=== PATIENT | female | born 1970 | race Caucasian/White ===

== ENCOUNTER → 2017-01-24 | Outpatient (CLI) | payer MEDICAID ==
[~2017-01-24] MED LIST: AMARYL2 MG PO; AMLO5TAB PO; AMOXICILLIN 50500 MG PO; ASPIRIN 325MG325 MG PO; ASPIRIN 81MG TA81 MG PO; ASPIRIN EC325 M1 PO; ASPIRIN EC325 MG PO; ASPIRIN325 M1 PO; ASPRIN OR; CARVEDILOL 1212.5 MG PO; CARVEDILOL 25MG25 MG PO; CHANTIX1 M1 PO; CIPRO 500MG TA500 MG PO; CLOPIDOGREL75 MG PO; COREG 6.25MG6.25 MG PO; CRESTOR20 MG PO; DIOVAN320 MG PO; DIOVAN80 MG OR; ESCITALOPRAM 2020 MG PO; FENOFIBRATE160 MG PO; FISH OIL1000 MG PO; FLAGYL 500MG.500 MG PO; FLEXERIL10 MG PO; GABAPENTIN 600600 MG PO; GABAPENTIN300 MG PO; GEMFIBROZIL600 MG PO; GLIMEPIRIDE 2MG2 MG PO; GLIPIZIDE5 MG PO; GLYBURIDE 5MG TA5 MG PO; GLYBURIDE5 MG PO; HABITROL21 MG/24 H TD; HUMALOG100 U/ML SC; HYDROCODONE 7.51 TAB PO; HYDROCODONE BI473 ML PO; IMDUR 60MG. TAB60 MG PO; INSULIN GL100 UNITS/ SC; INSULIN GL100 UNITS1 SC; K-DUR 20MEQ TA20 MEQ PO; KEFLEX 500MG.500 MG PO; LANTUS100 U/ML SC; LASIX 40MG. TAB40 MG PO; LINZESS145 MCG PO; LIPITOR80 MG PO; LISINOPRIL 20MG20 MG PO; LORATADINE 10MG10 M1 PO; LORTAB 500 MG-71 TAB PO; LOSARTAN POTAS100 MG PO; MAXZIDE 25 MG-31 TAB PO; METFORMIN 500M500 M1 PO; METFORMIN 500M500 MG PO; METFORMIN HCL1000 MG PO; METFORMIN500 MG PO; METOCLOPRAMIDE10 M2 PO; METOLAZONE 2.52.5 MG PO; METOPROLOL100 MG PO; METOPROLOL50 MG PO; NICODERM C21 MG/24 H TD; NICOTINE PATCH;21 MG TD; NITROGLYCERIN0.4 MG SL; PANTOPRAZOLE SO40 M1 PO; PERCOCET 5/3251 EACH PO; PHENERGAN25 M3 PO; POTASSIUM CHLO10 ME3 PO; PRAVACHOL10 MG PO; SIMVASTATIN40 MG PO; TERBINAFINE250 MG PO; TESSALON PERLE100 MG PO; TRICOR145 MG PO; VICODIN 5/500 T1 TAB PO; VOLTAREN75 MG PO; Zofran4 MG PO
[2017-01-24 12:37] LABS: LYMPH # 2.8 K/mm3 (0.7-4.5)
[2017-01-24 12:38] LABS: HEMOGLOBIN 12.7 g/dL (12.2-16.2)
[2017-01-24 15:05] LABS: BUN 57 mg/dL (7-18)
[2017-01-24 15:07] LABS: GFR (ESTIMATED) 20 ML/MIN (59-)
--- NOTE | 2017-01-25 13:18 | RADIOLOGY REPORT PS360 ---
CERVICAL SPINE 4 OR 5 VIEWS HISTORY: Fall. Neck injury. HTN,TYPE II DM W/VASCULAR DISEASE,HYPERLIPIDEMIA Patient Age: 46 years: Female Ordering Physician: Jabari Anderson MD TECHNIQUE: Five-view cervical spine series. COMPARISON : FINDINGS Cervical vertebral bodies are intact and disc spaces are well-maintained. Nonspecific straightening of cervical spine likely positional but cannot exclude muscle spasm related to recent injury resulting in size. There is some very minor uncovertebral joint hypertrophy and spurring to the right which yields mild right foraminal encroachment seen to the right at C5-C6 . Less so at C4/5. Facets appear intact. Small rudimentary cervical ribs C7 measuring up to 2.5 seem in length bilateral. Small but conceivably could contribute to thoracic inlet symptoms been present Previous sternotomy noted. Prevertebral soft tissues appear normal. C1-C2 relationships appear normal. IMPRESSION IMPRESSION: 1. No acute fracture nor subluxation 2. Nonspecific straightening cervical spine most likely positional but can be reflection of muscle spasm. 3. . Only Scant degenerative changes. Trace spurring yields minor foraminal encroachment to right at C5-C6. 4.Small bilateral rudimentary cervical ribs.
== END ==
LOC: LAB 12:03 → RAD 12:03
PROVIDERS: Internal Medicine
DX: I10 Essential (primary) hypertension (principal); E78.5 Hyperlipidemia, unspecified; N18.3 Chronic kidney disease, stage 3 (moderate); M54.2 Cervicalgia; R10.13 Epigastric pain

== ENCOUNTER 2017-01-25 04:45 | Emergency (ER) | payer MEDICAID ==
[~2017-01-25] VITALS: Ht 167.6 cm; Wt 83.9 kg
[~2017-01-25 04:45] MED LIST changes: -ASPIRIN 325MG325 MG PO; -CRESTOR20 MG PO; -ESCITALOPRAM 2020 MG PO; -GLIMEPIRIDE 2MG2 MG PO; -LINZESS145 MCG PO; -Zofran4 MG PO
--- NOTE | 2017-01-25 05:04 | Emergency Room Report ---
History of Present Illness Time Seen by [id number] Presenting Problem in Triage Pt arrived:Walked Presenting Problem:HAS A "DOUBLE HERNIA" AND "CAN'T STAND IT ANY LONGER"; HAS SEEN DR. VALLE FOR PROBLEM X2 MONTHS; 20 POUNDS WT LOSS Onset of symptoms date/time:11/22/16 or onset unknown for: Treatment Prior to Arrival: [employer] Provided by: Sepsis Risk Assessment: Temp: 97.8 B/P: 186/89 MAP: 121 Pulse: 72 Resp: 20 Recent fever? N Clinical Suspician of Infection? N Mental Status: 1 - Regular (Normal Baseline) Sepsis Risk:Low Sepsis Risk Have you (or family members/close friends) recently traveled outside the [place]? N If Yes, where/when: Have you had exposure to infectious disease within the past month? N TB? Other? Specify: Source patient, RN notes reviewed, family, old records Exam Limitations no limitations Comment upper abd pain with hx of hernia with no fever or rash and no vomiting Cardiac Chest Pain Chest pain indicative of cardiac No Timing/Duration this evening Severity moderate ALLERGIES Coded Allergies: ciprofloxacin (From CIPRO) (Intermediate, I-RASH 03/13/15) lisinopril (Intermediate, I-ITCHING 03/13/15) morphine (Intermediate, I-ITCHING 03/13/15) Home Medications Active Scripts Carvedilol (Carvedilol 25MG) 25 MG PO BID #60 Ref 5 Prov: 06/23/12 Pantoprazole Sodium 40 MG PO QHS #30 TAB Ref 5 Prov: 03/19/14 Insulin Lispro, Recombinant (Humalog 100 UNITS/ML 10ML) 0 UNITS SC W/MEALS& HS #1 VIAL Prov: 03/14/15 Reported Medications CLOPIDOGREL BISULFATE (Clopidogrel 75MG) 75 MG PO DAILY HYDROCODONE/ACETAMINOPHEN (Hydrocodon-Acetamin 7.5-325/15) 1 TAB PO BIDP PRN PAIN Amlodipine Besylate (Amlodipine) 5 MG PO DAILY #30 ASPIRIN (Aspirin 325MG) 325 MG PO DAILY Escitalopram Oxalate (Escitalopram 20MG) 5 MG PO DAILY Linaclotide (Linzess 145MCG) 145 MCG PO DAILY Rosuvastatin Calcium (Crestor) 20 MG PO QHS Glimepiride (Glimepiride 2MG Tablet) 4 MG PO DAILY Gabapentin (Gabapentin 300MG) 300 MG PO QHS Losartan Potassium (Losartan 100MG) 100 MG PO DAILY Ondansetron (Zofran Odt) 4 MG PO Q6HP PRN NAUSEA Gabapentin (Gabapentin 600MG) 600 MG PO TID METFORMIN HCL (Metformin 500MG) 500 MG PO BID Metolazone (Metolazone 2.5MG) 10 MG PO DAILY Fenofibrate (Fenofibrate 160MG (GEQ: Lofibra)) 160 MG PO DAILY POTASSIUM CHL (Potassium Chloride) 10 MEQ PO DAILY ISOSORBIDE MONONITRATE (Isosorbide Mononitrate ER) 60 MG PO DAILY Loratadine (Loratadine 10MG Tablet) 10 MG PO DAILY Furosemide (Lasix 40MG) 40 MG PO DAILY PRN FLUID RETENTION History Medical History General CAD? Yes Angina: Yes MD: Yes Hypertension? Yes Hyperlipidemia? Yes CHF? No DVT? No PE? No COPD? No Asthma? No Anemia? No GERD? No Gastric ulcers? No GI Bleed? No Hernia? No Thyroid Problems? No Hypothyroidism? No CVA? Yes Seizures? No Diabetes? Yes Insulin Dependent: Yes Insulin Pump: No Home FSBS? Yes Renal Insuffiency? No End Stage Renal Disease? No UTI? No Stones? Yes GB Disease: Yes Nephritic Syndrome? No Asplenia? No Hepatitis? No Sickle Cell Disease? No Arthritis? No Cataracts? No Glaucoma? No MRSA? No HIV? No TB? No Anxiety? No Depression? No Cancer? No More? 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 Respiratory denies cough, denies shortness of breath, denies wheezing Cardiovascular denies chest pain, denies palpitations, denies syncope Gastrointestinal see HPI, abdominal pain, nausea, denies vomiting Genitourinary denies: dysuria, frequency, hesitancy, hematuria. Musculoskeletal denies back pain, denies joint pain, denies joint swelling, denies neck pain Skin denies rash Psychiatric/Neurological denies anxiety, denies headache Physical Exam Vital Signs Vital Signs Date Time Temp Pulse Resp B/P Pulse O2 O2 Flow FiO2 Ox Delivery Rate 01/25 0605 97.9 71 20 190/87 97 01/25 0452 97.8 72 20 186/89 98 - WBC >12,000 or <4,000 or 10% bands? 2 or more SIRS Criteria Met? B/P:190/87 MAP:121 Creatinine >2.0? UA output<0.5ml/kg/hr for 2 hrs? Platelet count >100,000? Lactate >2.0mmol/1? INR >1.2 or PTT > than 60 sec? Evidence of Organ Dysfunction? Provider documented clinical suspician of infection? N Sepsis Criteria Count: 1 Sepsis Risk: Low Sepsis Risk General Appearance no apparent distress Eye Exam - bilateral eye PERRL, bilateral eye EOMI Ear, Nose, Throat normal ENT inspection Neck supple Respiratory Status No: respiratory distress. Cardiovascular regular rate/rhythm Peripheral Pulses Pulses normal Yes Gastrointestinal soft, no organomegaly, no pulsatile mass, no guarding, no rebound, tenderness, ventral hernia noted Extremities normal inspection Strength 4 Upper Ext (L), 4 Upper Ext (R), 4 Lower Ext (L), 4 Lower Ext (R) Neurologic alert, preliminary school psychologist II-XII nml as tested, no motor/sensory deficits Reflexes Reflexes normal No Mental status normal mood/affect Skin intact Medical Decision Making LABS/Meds/Orders Pt receiving controlled substance in ED? No Results/Orders Laboratory Tests 01/25/17 0510: Lactic Acid 0.6 01/25/17 0510: Sodium 132 L, Potassium 5.4 H, Chloride 103, Carbon Dioxide 17 L, BUN 67 H, Creatinine 3.1 H, Estimated Creat Clear 29 L, Estimated GFR (MDRD) 16 *L, Glucose 262 H, Calcium 9.0, Total Bilirubin 0.1 L, AST 17, ALT 18, Alkaline Phosphatase 65, Troponin I < 0.02, Total Protein 7.7, Albumin 3.6, Globulin 4.1 H, Albumin/Globulin Ratio 0.9 L, Amylase 58, Lipase 342, WBC 6.1, RBC 4.19 L, Hgb 11.9 L, Hct 36.3 L, MCV 86.6, RDW 12.9, Plt Count 187, MPV 8.1, Gran % 47.7, Gran # 2.9, Lymphocytes % 42.7, Monocytes % 5.7, Eosinophils % 3.0, Basophils % 0.8, Lymphocytes # 2.6, Monocytes # 0.3, Eosinophils # 0.2, Basophils # 0.1, PUBS MCHC 32.8, MCH 28.4 Current Medication Orders Sig/Sarika Start time Last Medication Dose Route Stop Time Status Admin Famotidine 0 .STK-MED ONE 01/25 621 DC IV Metoclopramide HCl 0 .STK-MED ONE 01/25 621 DC .ROUTE Famotidine 20 MG ONCE ONE 01/25 615 DC 01/25 IV 01/26 616 0622 Metoclopramide HCl 10 MG ONCE ONE 01/25 615 DC 01/25 IVP 01/26 616 0622 Sodium Chloride 8 ML ONCE ONE 01/25 615 DC IV 01/25 0616 Sodium Chloride 1,000 ML .STK-MED ONE 01/25 0504 DC IV Sodium Chloride 10 ML PRN PRN 01/25 0500 AC IV 01/26 0458 Sodium Chloride 1,000 ML .Q4H 01/25 0500 AC 01/25 IV 01/25 0859 0536 Sodium Chloride 10 ML PRN PRN 01/25 0500 AC IV 01/26 0459 Orders Procedure Date/time Status DIET-NOTHING BY MOUTH 01/[address] ABD & PELVIS W/O CONTRAST 01/[address] SCAN REQ 01/25 459 Active IV SALINE LOCK 01/25 459 Active TROPONIN I 01/25 459 Complete LIPASE 01/25 459 Complete LACTIC ACID 01/25 459 Complete COMPLETE METABOLIC PANEL 01/25 459 Complete CBC WITH AUTO DIFF 01/25 459 Complete AMYLASE 01/25 459 Complete XRAY/CT/US XRAY/CT/US CT abdomen, pelvis CT interpretation by discussed w/radiologist Time results known: 610 CT Results abnormal (see report) Departure Departure Time of Disposition 0644 Disposition DC Home or Self Care(routine) Clinical Impression Primary Impression: Gastritis Qualifiers: Gastritis type: unspecified gastritis Chronicity: acute Gastritis bleeding: without bleeding Qualified Code: K29.00 - Acute gastritis without bleeding Secondary Impressions: Renal insufficiency Condition STABLE Referrals Justin BAILEY,Jabari Rdz (Family) Patient Instructions DI for Vomiting -- Adult Additional Instructions fluids and call pcp to follow up Discharge Counseling Counseled pt/family regarding diagnosis, test results, follow up needs ED Critical Care Critical Care No at [id number]
--- OUTSIDE RECORDS SUMMARY | 2017-01-25 05:09 | External Medical Summary Rpt | CCD ---
Demographics Preferred Language Estonian Marital Status Unknown Voodoo Affiliation Unknown Race Unknown Ethnic Group Unknown Author Author , HAI VALLES Address Unknown Phone [email or web address] Immunization Name Date Rout CVX Reac Dose Comm Prov Is Faci e tion ent ider Refu lity Give sed n Hep 08-1 43 999 Hist H109 No H109 B, 6-20 oric adul 07 al t Info rmat ion - Sour ce Unsp ecif ied
--- OUTSIDE RECORDS SUMMARY | 2017-01-25 05:09 | External Medical Summary Rpt | CCD ---
Author Author , HAI VALLES Address Unknown Phone [email or web address] Care Team Providers Care Dag Sprayer Name Role Phone Jabari Anderson MD, Unavailable Unavailable Jabari FERGUSON MD, Unavailable Unavailable ADOLFO FERGUSON MD Purpose Continuity of Care Document - 06-20-2012 through 2016 Problems Code Diagnosis DOS Provider Status 411.1 411.1 06-26-2012 [place] INTERMED [facility] CORONARY [facility] SYND 786.50 786.50 06-26-2012 [place] CHEST PAIN [facility] 041.49 041.49 06-23-2012 [place] OTHER AND [facility] UNSPECIFIED Hospital ESCHERICHIA COLI [E. COLI] 250.40 250.40 DIAB 06-23-2012 [place] RENAL [facility] MANIFEST, Hospital TYPE II OR UNSPEC TYPE, NOT UNCNTRLD 250.70 250.70 DIAB 06-23-2012 [place] PERIPH [facility] CIRC DIS, Hospital TYPE II OR UNSPEC TYPE, NOT UNCNTRLD 305.1 305.1 06-23-2012 [place] TOBACCO USE [facility] DISORDER Hospital 403.90 403.90 06-23-2012 [place] [facility], Hospital UNSPEC, W CHR KD STAGE I-IV OR UNSP 412 412 OLD 06-23-2012 [place] MYOCARDIAL [facility] INFARCT Hospital 414.01 414.01 06-23-2012 [place] CORONARY [facility] A[facility]OSCLER Hospital [place] CORONARY VESSEL 414.2 414.2 06-23-2012 [place] CHRONIC [facility] TOTAL Hospital OCCLUSION OF CORONARY ARTERY 443.81 443.81 06-23-2012 [place] ANGIOPATHY [facility] IN OTHER Hospital DIS 465.9 465.9 ACUTE 06-23-2012 [place] URI NOS [facility] 490 490 06-23-2012 [place] BRONCHITIS [facility] NOS Hospital 581.81 581.81 06-23-2012 [place] NEPHROTIC [facility] SYN IN OTH Hospital DIS 585.3 585.3 06-23-2012 [place] CHRONIC [facility] KIDNEY Hospital DISEASE, STAGE III (MODERATE) 599.0 599.0 URIN 06-23-2012 [place] TRACT [facility] INFECTION Hospital NOS V45.09 V45.09 06-23-2012 [place] OTHER [facility] SPECIFIED Hospital CARDIAC DEVICE IN SITU V45.82 V45.82 06-23-2012 [facility] CORON ANGIOPLASTY STATUS V58.67 V58.67 06-23-2012 [facility] (CURRENT) [facility] USE OF INSULIN E11.9 TYPE 2 DIABETES MELLITUS WITHOUT COMPLICATIO NS N28.9 DISORDER OF KIDNEY AND URETER, UNSPECIFIED R07.9 CHEST PAIN, UNSPECIFIED R10.9 UNSPECIFIED ABDOMINAL PAIN Allergies, Adverse Reactions, Alerts Type Drug Allergy Adverse Reaction to Substance Substance Reaction Severity Morphine I-ITCHING Intermediate Ciprofloxacin I-RASH Intermediate Lisinopril COUGH Intermediate Medications Na ND Rx Da Fi Fi Am Da Di Ph RX Ph St me C No te ll ll ou ys ag ar # ys at rm s nt no ma ic us Or Da si cy ia de te s n re d Sa 63 04 0 No li 80 -1 ne 70 9- Lo 10 20 ng Fl 07 13 er us 5 h Ac 10 ti ML ve Sy ri ng e NI 59 04 0 No TR 63 -1 OG 00 9- Lo LY 30 20 ng CE 06 13 er RI 5 N Ac 0. ti 4M ve G/ DO SE SP RA Y HY [address] 40 -1 OM 91 9- Lo OR 31 20 ng PH 23 13 er ON 0 E Ac 2 ti MG ve /M L CA RP UJ CT Sa 63 04 0 No li 80 -1 ne 70 9- Lo 10 20 ng Fl 07 13 er us 5 h Ac 10 ti ML ve Sy ri ng e NI 59 04 0 No TR 63 -1 OG 00 9- Lo LY 30 20 ng CE 06 13 er RI 5 N Ac 0. ti 4M ve G/ DO SE SP RA Y KE 00 04 0 No TO 40 -1 RO 93 6- Lo LA 79 20 ng C 50 13 er 30 1 Ac MG ti /M ve L AL Ni 00 04 0 No tr 08 -1 og 81 6- Lo ly 55 20 ng ce 24 13 er ri 9 n Ac 1 ti In ve ch Oi nt Ud p AM 67 04 0 No OX 25 -1 IC 30 6- Lo IL 14 20 ng LI 11 13 er N 0 50 Ac 0 ti MG ve CA PS UL E LE 00 04 0 No XI 46 -1 SC 96 6- Lo AN 50 20 ng 18 13 er IN [address] ti IO ve N NU 77 04 0 No C- 77 -1 IS 77 6- Lo OT 77 20 ng OP 79 13 er E [address] ti IO ve LY TE ;1 DO SE NU 77 04 0 No C- 77 -1 IS 77 6- Lo OT 77 20 ng OP 79 13 er E [address] ti IO ve LY TE ;1 DO SE RA 63 04 0 No D- 80 -1 SA 70 6- Lo LI 10 20 ng NE 07 13 er 5A FL Ac US ti H ve 10 ML SY RI NG E RA 63 04 0 No D- 80 -1 SA 70 6- Lo LI 10 20 ng NE 07 13 er 5A FL Ac US ti H ve 10 ML SY RI NG E Ni 00 04 0 No tr 08 -1 og 81 5- Lo ly 55 20 ng ce 24 13 er ri 9 n Ac 1 ti In ve ch Oi nt Ud p GI 12 04 0 No 32 -1 CO 22 5- Lo CK 22 20 ng TA 22 13 er IL 2 Ac 60 ti ML ve UD C Ph 00 04 1 No en 60 -1 az 35 5- Lo op 14 20 ng yr 22 13 er id 1 in Ac e ti 20 ve 0M G Ta bl et ME 51 04 0 No TF 07 -1 OR 90 4- Lo AR 17 20 ng N 22 13 er HC 0 L Ac 50 ti 0 ve MG TA BL ET CA 51 04 0 No RV 07 -1 ED 90 4- Lo IL 93 20 ng OL 12 13 er 0 12 Ac .5 ti ve MG TA BL ET PL 63 04 2 No AV 65 -1 IX 31 4- Lo 17 20 ng 75 10 13 er 3 MG Ac ti TA ve BL ET Ge 00 04 2 No mf 90 -1 ib 45 4- Lo ro 37 20 ng zi 96 13 er l 1 60 Ac 0M ti G ve Ta bl et As 51 04 2 No pi 07 -1 ri 90 4- Lo n 00 20 ng 32 52 13 er 5M 0 G Ac Ta ti bl ve et GL 51 04 0 No YB 07 -1 UR 90 4- Lo ID 87 20 ng E 32 13 er 5 0 MG Ac ti TA ve BL ET AP 00 04 2 No AP 40 -1 -H 60 4- Lo YD 36 20 ng RO 66 13 er CO 2 DO Ac NE ti ve 32 5M G- 7. 5M G Hy [address] 07 -1 oc 90 4- Lo hl 04 20 ng or 92 13 er ot 0 hi Ac az ti id ve e 25 MG Ta bl e Is 58 04 2 No os 17 -1 or 70 4- Lo bi 23 20 ng de 81 13 er 1 Mo Ac no ti ni ve tr at e 60 MG Ta AV 00 04 2 No AP 08 -1 RO 72 4- Lo 77 20 ng 15 23 13 er 0 1 MG Ac ti TA ve BL ET Ni 00 04 2 No co 06 -1 ti 70 4- Lo ne 81 20 ng 02 13 er 21 1 MG Ac /2 ti 4H ve R Pa tc h Ni 68 04 2 No tr 46 -1 og 20 4- Lo ly 14 20 ng ce 64 13 er ri 5 n Ac 0. ti 4M ve G (1 / 50 Gr ) FS 04 2 No -1 BL 4- Lo OO 20 ng D 13 er [place] GA Ac R ti ve GL 51 04 2 No IM 07 -1 EP 90 4- Lo IR 42 20 ng ID 52 13 er E 0 2 Ac MG ti ve TA BL ET HU 00 04 2 No MA 00 -1 LO 27 4- Lo G 51 20 ng 10 01 13 er 0 7 UN Ac IT ti S/ ve ML AL Pr 00 04 2 No av 59 -1 as 10 4- Lo ta 01 20 ng ti 61 13 er n 9 40 Ac MG ti ve Ta bl et Ga 68 04 2 No ba 08 -1 pe 40 4- Lo nt 08 20 ng in 00 13 er 1 30 Ac 0M ti G ve Ca ps ul e In 00 04 2 No brennan 08 -1 li 82 4- Lo n 22 20 ng Gl 06 13 er ar 0 gi Ac ne ti ve 10 0 Un it s/ Ml SO 00 04 3 No DI 40 -1 UM 97 3- Lo 98 20 ng CH 30 13 er LO 9 RI Ac DE ti ve 0. 9% SO NITESH TI ON Sa 63 04 1 No li 80 -1 ne 70 3- Lo 10 20 ng Fl 07 13 er us 5 h Ac 10 ti ML ve Sy ri ng e Ni 00 04 0 No tr 08 -1 og 81 3- Lo ly 55 20 ng ce 24 13 er ri 9 n Ac 1 ti In ve ch Oi nt Ud p MA 00 04 3 No PA 90 -1 P 41 3- Lo 32 98 20 ng 5 26 13 er MG 1 Ac TA ti BL ve ET Vital Signs 06-26-2012 16:28 Name Value Interpretat Reference Comment ion Range BP 86 mm[Hg] Diastolic BP Systolic 142 mm[Hg] Heart 92 /min Rate/Pulse O2% 94 % Respiratory 18 /min Rate 06-26-2012 14:48 Name Value Interpretat Reference Comment ion Range BP 64 mm[Hg] Diastolic BP Systolic 148 mm[Hg] Heart 72 /min Rate/Pulse Respiratory 18 /min Rate 06-26-2012 14:00 Name Value Interpretat Reference Comment ion Range O2% 96 % 06-23-2012 18:27 Name Value Interpretat Reference Comment ion Range Body 97.7 [degF] Temperature BP 78 mm[Hg] Diastolic BP Systolic 154 mm[Hg] Heart 66 /min Rate/Pulse Respiratory 18 /min Rate 06-23-2012 11:30 Name Value Interpretat Reference Comment ion Range O2% 97 % 06-20-2012 23:06 Name Value Interpretat Reference Comment ion Range Height 170.18 cm Weight 83.462 kg Measured 06-20-2012 19:33 Name Value Interpretat Reference Comment ion Range Body 98 [degF] Temperature BP 75 mm[Hg] Diastolic BP Systolic 144 mm[Hg] Heart 71 /min Rate/Pulse O2% 97 % Respiratory 18 /min Rate Weight 0 [oz_av] Measured Results Labs Lab Lab Date Result Refere Interp Status Commen Order Detail nces retati t Range on Hemoglobin A1c measurement (01-24-2017 12:06) Comment: DEW...[place] IN THE A.M. AND DOES NOT WANT TO Comment: COME BACK. Hemoglo 9.7 % 0.0-7.0 complet bin A1c 017 ed 12:06 Comment: < 6% NON-DIABETIC LEVEL Comment: < 7% CONTROLLED DIABETIC LEVEL Comment: > 8% POORLY CONTROLLED DIABETIC LEVEL Lipid profile (01-24-2017 12:06) Comment: DEW...PT [place] IN THE A.M. AND DOES NOT WANT TO Comment: COME BACK. Serum TNP TNP 0-40 complet or 017 L TNP ed plasma 12:06 TNP L cholest ezequiel in VLDL garett Serum = 673 30-200 complet or 017 mg/dL ed plasma 12:06 triglyc eride measure ment Comment: IF TRIGLYCERIDE VALUE EXCEEDS 400 MG/DL, Comment: THE VLDL/LDL VALUES HAVE NO CLINICAL SIGNIFICANCE. Comment: THE CALCULATIONS ARE ACCURATE FOR SPECIMENS IN Comment: WHICH THE TRIGLYCERIDE CONCENTRATION IS NO MORE Comment: THAN 400 MG/DL AND WHICH ARE NOT FROM PERSONS WHO Comment: HAVE TYPE III HYPERLIPOPROTEINEMIA. Serum TNP TNP 0-130 complet or 017 L TNP ed plasma 12:06 TNP L cholest mg/dL ezequiel in LDL measu Serum = 33.0 40-60 complet or 017 MG/DL ed plasma 12:06 cholest ezequiel in HDL measu Total = 212 < 200 complet cholest 017 mg/dL ed ezequile 12:06 measure ment Comprehensive metabolic panel (01-24-2017 12:06) Comment: DEW...PT IS LEAVING FOR [place] IN THE A.M. AND DOES NOT WANT TO Comment: COME BACK. Protein = 7.6 6.4-8.2 complet total 017 gm/dL ed ser/pietro 12:06 s ALT = 18 12-78 complet (SGPT) 017 U/L ed ser/pietro 12:06 s Serum = 14 15-37 complet or 017 U/L ed plasma 12:06 asparta te aminotr ansfera Serum = 136 136-145 complet sodium 017 mmoL/L ed measure 12:06 ment Serum = 6.2 3.5-5.1 complet potassi 017 mmoL/L ed um 12:06 measure ment Comment: CRITICAL RESULTS Comment: RESULTS CALLED TO: EARL FIGUEROA 01/24/17 1507 Alla Rousseau Serum = 166 74-106 complet or 017 mg/dL ed plasma 12:06 glucose measure ment (mas Serum = 3.8 1.3-3.2 complet globuli 017 gm/dL ed n 12:06 measure ment (mass/v olume) Estimat = 20 59- complet ed 017 ML/MIN ed glomeru 12:06 lar filtrat ion rate (GF Comment: REFERENCE RANGE: >60 ML/MIN/1.73 SQUARE METERS Comment: If this patient is -Dominican, then multiply the Comment: result by 1.210. Serum 2 = 2.6 0.55-1. complet or 017 mg/dL 02 ed plasma 12:06 creatin ine measure ment ( Carbon = 21 21.0-32 complet dioxide 017 mmoL/L .0 ed 12:06 measure ment Serum = 104 98-107 complet or 017 mmoL/L ed plasma 12:06 chlorid e measure ment (mo Serum = 9.0 8.5-10. complet or 017 mg/dL 1 ed plasma 12:06 calcium measure ment (mas Serum = 57 7-18 complet or 017 mg/dL ed plasma 12:06 urea nitroge n measure men Serum = 0.2 0.2-1.0 complet or 017 mg/dL ed plasma 12:06 total bilirub in measure m Serum = 53 46-116 complet or 017 U/L ed plasma 12:06 alkalin e phospha tase sondra Serum = 3.8 3.4-5.0 complet or 017 gm/dL ed plasma 12:06 albumin measure ment (mas Serum = 1.0 1.1-1.8 complet or 017 ed plasma 12:06 albumin /globul in mass ra Amylase ser/plas (01-24-2017 12:06) Comment: DEW...[place] IN THE A[place]M. AND DOES NOT WANT TO Comment: COME BACK. Amylase = 63 25-115 complet 017 U/L ed ser/pietro 12:06 s CBC w auto diff (01-24-2017 12:06) Comment: DEW...PT [place] IN THE A.M. AND DOES NOT WANT TO Comment: COME BACK. Blood = 6.3 4.8-10. complet leukocy 017 K/MM3 8 ed sim 12:06 count (number /volume ) Automat = 13.1 11.5-17 complet ed 017 % .5 ed erythro 12:06 cyte distrib ution width Red = 4.55 4.2-5.4 complet blood 017 M/mm3 ed cell 12:06 count Blood = 223 142-424 complet platele 017 K/mm3 ed t count 12:06 Automat = 7.9 7.4-10. complet ed 017 fl 4 ed blood 12:06 platele t mean volume sondra [place] % = 5.6 % 1.7-9.3 complet 017 ed 12:06 Absolut = 0.4 0.1-1.0 complet e 017 K/mm3 ed monocyt 12:06 e count Automat = 86.5 82.2-97 complet ed 017 fl .8 ed erythro 12:06 cyte mean corpusc ular v Automat = 32.2 31.8-35 complet ed 017 g/dl .4 ed erythro 12:06 cyte mean corpusc ular h Mean = 27.8 27-31.2 complet corpusc 017 pg ed ular 12:06 hemoglo bin (MCH) determ Lymphoc = 44.0 10-50.0 complet yte 017 % ed count, 12:06 blood, automat ed Absolut = 2.8 0.7-4.5 complet e 017 K/mm3 ed lymphoc 12:06 yte count Blood = 12.7 12.2-16 complet hemoglo 017 g/dL .2 ed bin 12:06 measure ment (mass/v olum Blood = 39.4 37.0-47 complet hematoc 017 % .0 ed rit 12:06 (volume fractio n) Granulo = 45.4 37.0-80 complet cyte 017 % .0 ed percent 12:06 age Blood = 2.8 1.8-7.8 complet granulo 017 K/mm3 ed cytes 12:06 automat ed count (numb Automat = 4.0 % 0.1-12. complet ed 017 0 ed blood 12:06 eosinop hils/10 0 leukocy t Automat = 0.3 0.0-0.4 complet ed 017 K/mm3 ed blood 12:06 eosinop hil count Baso % = 0.9 % 0.1-2.0 complet 017 ed 12:06 Automat = 0.1 0-0.2 complet ed 017 K/MM3 ed blood 12:06 basophi l count (count/ vo Hemoglobin A1c in Blood (01-24-2017 12:06) Hemoglo 9.7 % 0.0% High complet bin A1c 017 - ed in 12:06 7.0% Blood Lipid 1996 panel in Serum or Plasma (01-24-2017 12:06) Cholest TNP 0mg/d complet ezequiel in 017 L - ed LDL 12:06 130mg [Mass/v /dL olume] in Serum or Plasma by calcula tion Cholest TNP 0 - 40 complet ezequiel in 017 ed VLDL 12:06 [Mass/v olume] in Serum or Plasma Hemoglobin A1c in Blood (08-06-2016 11:56) Hemoglo 9.3 % 0.0% High complet bin A1c 017 - ed in 11:56 7.0% Blood Urinalysis dipstick W Reflex Microscopic panel in Urine (08-06-2016 11:56) Bacteri 1+ O complet a 017 ed [Presen 11:56 ce] in Urine sedimen t by Light microsc opy Erythro 5-10 0 complet cytes 017 ed [Presen 11:56 ce] in Urine sedimen t by Light microsc opy Epithel 5-10 0#/hp complet ial 017 f - ed cells.s 11:56 5#/hp quamous f [Presen ce] in Urine sedimen t by Microsc opy high power field Leukocy 5-10 O complet sim 017 wbc/hpf ed [#/volu 11:56 me] in Urine Urinalysis dipstick W Reflex Microscopic panel in Urine (08-06-2016 11:56) Appeara CLEAR CLEAR complet nce of 017 ed Urine 11:56 Bilirub NEGATIV NEG complet in 017 E ed [Presen 11:56 ce] in Urine by Test strip Erythro TRACE-I NEG complet cytes 017 NTACT ed [Presen 11:56 ce] in Urine Color YELLOW YELLOW complet of 017 ed Urine 11:56 Ketones NEGATIV NEG complet 017 E ed [Presen 11:56 ce] in Urine by Automat ed test strip Mucus NEGATIV NEG complet [Presen 017 E ed ce] in 11:56 Urine sedimen t by Light microsc opy Nitrite NEGATIV NEG complet 017 E ed [Presen 11:56 ce] in Urine by Test strip Urobili 0.2 NEG complet nogen 017 ed [Presen 11:56 ce] in Urine by Test strip COMPREHENSIVE METABOLIC PANEL (06-26-2012 14:05) Glucose 374 74-106 complet 013 mg/dL ed Bld-mCn 14:05 c BUN 25 7-18 complet Bld-mCn 013 mg/dL ed c 14:05 Creat 1.2 0.6-1.0 complet SerPl-m 013 mg/dL ed Cnc 14:05 ESTIMAT 74 50-200 complet ED 013 ML/MIN ed CREATIN 14:05 INE CLEARAN CE GFR 49 59- complet (ESTIMA 013 ML/MIN ed BRUNO) 14:05 Sodium 134 136-145 complet SerPl-s 013 mmoL/L ed Cnc 14:05 Potassi 4.3 3.5-5.1 complet um 013 mmoL/L ed SerPl-s 14:05 Cnc Chlorid 102 98-107 complet e 013 mmoL/L ed SerPl-s 14:05 Cnc CO2 23 21.0-32 complet SerPl-s 013 mmoL/L .0 ed Cnc 14:05 Calcium 8.6 8.5-10. complet 013 mg/dL 1 ed SerPl-m 14:05 Cnc Prot 6.8 6.4-8.2 complet SerPl-m 013 gm/dL ed Cnc 14:05 Albumin 04-19-2 3.0 3.4-5.0 complet 013 gm/dL ed SerPl-m 14:05 Cnc Globuli 19-2 3.8 1.3-3.2 complet n 013 gm/dL ed Ser-mCn 14:05 c Albumin 19-2 0.8 UNK 1.1-1.8 complet /Glob 013 ed SerPl-m 14:05 Rto Bilirub 06-26-2 0.2 0.2-1.0 complet 013 mg/dL ed SerPl-m 14:05 Cnc AST 06-26-2 9 U/L 15-37 complet SerPl-c 013 ed Cnc 14:05 ALT 19-2 30 U/L 30-65 complet SerPl-c 013 ed Cnc 14:05 ALP 06-26-2 119 U/L 50-136 complet SerPl-c 013 ed Cnc 14:05 CBC with AUTO DIFF (06-26-2012 14:05) WBC # -19-2 8.0 4.8-10. complet Bld 013 K/MM3 8 ed Auto 14:05 RBC # 19-2 3.86 4.2-5.4 complet Bld 013 M/mm3 ed Auto 14:05 Hgb 06-26-2 10.6 12.2-16 complet Bld-mCn 013 g/dL .2 ed c 14:05 Hct Fr 06-26-2 32.5 % 37.0-47 complet Bld 013 .0 ed 14:05 MCV RBC 06-26-2 84.2 fl 82.2-97 complet 013 .8 ed 14:05 MCH RBC 06-26-2 27.6 pg 27-31.2 complet Qn 013 ed Auto 14:05 MEAN 06-26-2 32.8 31.8-35 complet CORPUSC 013 g/dl .4 ed ULAR 14:05 HGB CONC RDW RBC 19-2 13.6 % 11.5-17 complet Auto 013 .5 ed 14:05 Platele -19-2 297 142-424 complet t Bld 013 K/mm3 ed Ql 14:05 Manual MEAN 19-2 7.5 fl 7.4-10. complet PLATELE 013 4 ed T 14:05 VOLUME Granulo 06-26-2 65.2 % 37.0-80 complet cytes 013 .0 ed Fr Bld 14:05 Auto LYMPH % 04-19-2 26.8 % 10-50.0 complet 013 ed 14:05 Monocyt 04-19-2 3.7 % 1.7-9.3 complet es Fr 013 ed Bld 14:05 Auto Eosinop 04-19-2 3.6 % 0.1-12. complet hil Fr 013 0 ed Bld 14:05 Auto Basophi 04-19-2 0.6 % 0.1-2.0 complet ls Fr 013 ed Bld 14:05 Auto Granulo 04-19-2 5.2 1.8-7.8 complet cytes # 013 K/mm3 ed Bld 14:05 Auto Lymphoc 04-19-2 2.1 0.7-4.5 complet ytes Fr 013 K/mm3 ed Bld 14:05 Auto Monocyt 04-19-2 0.3 0.1-1.0 complet es # 013 K/mm3 ed Bld 14:05 Auto Eosinop 04-19-2 0.3 0.0-0.4 complet hil # 013 K/mm3 ed Bld 14:05 Auto Basophi 04-19-2 0.1 0-0.2 complet ls # 013 K/MM3 ed Bld 14:05 Auto Glucose BldC [facility] (06-23-2012 16:58) Glucose 369 70-110 High complet BldC 013 mg/dl alert ed Glucomt 16:58 r-nc Glucose BldC [facility] (06-23-2012 12:02) Glucose 172 70-110 complet BldC 013 mg/dl ed Glucomt 12:02 r-nc Glucose BldC Glucomtr-nc (06-23-2012 06:33) Glucose 137 70-110 complet BldC 013 mg/dl ed Glucomt 06:33 r-nc Glucose BldC [facility]comtr-nc (06-22-2012 21:07) Glucose 265 70-110 complet BldC 013 mg/dl ed Glucomt 21:07 r-nc Glucose BldC [facility]com[facility]-nc (06-22-2012 16:59) Glucose 04-15-2 210 70-110 complet BldC 013 mg/dl ed Glucomt 16:59 r-nc Glucose dC [facility] (06-22-2012 11:58) Glucose 06-22-2 154 70-110 complet BldC 013 mg/dl ed Glucomt 11:58 r-[facility] Glucose dC [facility] (06-22-2012 06:51) Glucose 15-2 115 70-110 complet BldC 013 mg/dl ed Glucomt 06:51 r-[facility] Glucose dC [facility] (06-21-2012 20:27) Glucose 06-21-2 220 70-110 complet BldC 013 mg/dl ed Glucomt 20:27 r-[facility] URINALYSIS/COMPLETE (06-21-2012 18:45) URINE -14-2 YELLOW YELLOW complet COLOR 013 ed 18:45 URINE -14-2 SL CLEAR complet APPEARA 013 CLOUDY ed NCE 18:45 URINE -14-2 NEGATIV NEG complet GLUCOSE 013 E ed - 18:45 DIPSTIC K URINE 04-14-2 NEGATIV NEG complet BILIRUB 013 E ed IN - 18:45 DIPSTIC K URINE 04-14-2 NEGATIV NEG complet KETONE 013 E mg/dL ed 18:45 URINE 04-14-2 1.020 1.005-1 complet SPECIFI 013 UNK .030 ed C 18:45 GRAVITY URINE -14-2 1+ NEG complet BLOOD 013 ed 18:45 URINE 04-14-2 6.0 UNK 5.0-8.5 complet PH 013 ed 18:45 URINE 04-14-2 2+ NEG complet PROTEIN 013 mg/dL ed - 18:45 DIPSTIC K URINE 04-14-2 0.2 NEG complet UROBILI 013 E.U./dL ed NOGEN - 18:45 DIPSTIC K URINE 04-14-2 POSITIV NEG complet NITRATE 013 E ed - 18:45 DIPSTIC K URINE 04-14-2 1+ NEG complet LEUK 013 ed ESTERAS 18:45 E URINE 04-14-2 5-10 0 complet RBC 013 rbc/hpf ed 18:45 URINE 04-14-2 20-50 O complet WBC 013 wbc/hpf ed 18:45 URINE 04-14-2 5-10 0-5 complet SQUAMOU 013 #/hpf ed S CELLS 18:45 URINE 1+ O complet BACTERI 013 ed A 18:45 Glucose dC [facility] (06-21-2012 16:40) Glucose 248 70-110 complet BldC 013 mg/dl ed Glucomt 16:40 r-[facility] Glucose dC [facility] (06-21-2012 08:33) Glucose 250 70-110 complet BldC 013 mg/dl ed Glucomt 08:33 r-[facility] BASIC METABOLIC PANEL (06-21-2012 03:05) Glucose 200 74-106 complet 013 mg/dL ed Bld-mCn 03:05 c BUN 40 7-18 complet Bld-mCn 013 mg/dL ed c 03:05 Creat 1.3 0.6-1.0 complet SerPl-m 013 mg/dL ed Cnc 03:05 ESTIMAT 74 50-200 complet ED 013 ML/MIN ed CREATIN 03:05 INE CLEARAN CE GFR 45 59- complet (ESTIMA 013 ML/MIN ed BRUNO) 03:05 Sodium 135 136-145 complet SerPl-s 013 mmoL/L ed Cnc 03:05 Potassi 4.6 3.5-5.1 complet um 013 mmoL/L ed SerPl-s 03:05 Cnc Chlorid 103 98-107 complet e 013 mmoL/L ed SerPl-s 03:05 Cnc CO2 23 21.0-32 complet SerPl-s 013 mmoL/L .0 ed Cnc 03:05 Calcium 8.8 8.5-10. complet 013 mg/dL 1 ed SerPl-m 03:05 Cnc LIPID PROFILE (06-21-2012 03:05) Cholest 228 Less complet 013 mg/dL than ed SerPl-m 03:05 200 Cnc HDLc 33.0 40-60 complet SerPl-m 013 MG/DL ed Cnc 03:05 LDLc TNP 0-130 complet SerPl 013 mg/dL ed Calc-mC 03:05 nc VLDL TNP 0-40 complet CHOLEST 013 ed EZEQUIEL 03:05 Trigl 06-21- 707 30-200 complet SerPl-m 013 mg/dL ed Cnc 03:05 CBC with AUTO DIFF (06-21-2012 03:05) WBC # 14-2 6.1 4.8-10. complet Bld 013 K/MM3 8 ed Auto 03:05 RBC # 06-21-2 3.67 4.2-5.4 complet Bld 013 M/mm3 ed Auto 03:05 Hgb 10.6 12.2-16 complet Bld-mCn 013 g/dL .2 ed c 03:05 Hct Fr 30.7 % 37.0-47 complet Bld 013 .0 ed 03:05 MCV RBC 83.8 fl 82.2-97 complet 013 .8 ed 03:05 MCH RBC 28.8 pg 27-31.2 complet Qn 013 ed Auto 03:05 MEAN 34.3 31.8-35 complet CORPUSC 013 g/dl .4 ed ULAR 03:05 HGB CONC RDW RBC 14.1 % 11.5-17 complet Auto 013 .5 ed 03:05 Platele 297 142-424 complet t Bld 013 K/mm3 ed Ql 03:05 Manual MEAN 8.1 fl 7.4-10. complet PLATELE 013 4 ed T 03:05 VOLUME Granulo 54.2 % 37.0-80 complet cytes 013 .0 ed Fr Bld 03:05 Auto LYMPH % 34.5 % 10-50.0 complet 013 ed 03:05 Monocyt 6.0 % 1.7-9.3 complet es Fr 013 ed Bld 03:05 Auto Eosinop 06-21-2 4.6 % 0.1-12. complet hil Fr 013 0 ed Bld 03:05 Auto Basophi 06-21-2 0.7 % 0.1-2.0 complet ls Fr 013 ed Bld 03:05 Auto Granulo 06-21-2 3.3 1.8-7.8 complet cytes # 013 K/mm3 ed Bld 03:05 Auto Lymphoc 04-14-2 2.1 0.7-4.5 complet ytes Fr 013 K/mm3 ed Bld 03:05 Auto Monocyt 06-21-2 0.4 0.1-1.0 complet es # 013 K/mm3 ed Bld 03:05 Auto Eosinop 0.3 0.0-0.4 complet hil # 013 K/mm3 ed Bld 03:05 Auto Basophi 0.0 0-0.2 complet ls # 013 K/MM3 ed Bld 03:05 Auto COMPREHENSIVE METABOLIC PANEL (06-20-2012 19:42) Glucose 236 74-106 complet 013 mg/dL ed Bld-mCn 19:42 c BUN 40 7-18 complet Bld-mCn 013 mg/dL ed c 19:42 Creat 1.6 0.6-1.0 complet SerPl-m 013 mg/dL ed Cnc 19:42 ESTIMAT 55 50-200 complet ED 013 ML/MIN ed CREATIN 19:42 INE CLEARAN CE GFR 35 59- complet (ESTIMA 013 ML/MIN ed BRUNO) 19:42 Sodium 134 136-145 complet SerPl-s 013 mmoL/L ed Cnc 19:42 Potassi 4.7 3.5-5.1 complet um 013 mmoL/L ed SerPl-s 19:42 Cnc Chlorid 102 98-107 complet e 013 mmoL/L ed SerPl-s 19:42 Cnc CO2 23 21.0-32 complet SerPl-s 013 mmoL/L .0 ed Cnc 19:42 Calcium 9.2 8.5-10. complet 013 mg/dL 1 ed SerPl-m 19:42 Cnc Prot 7.9 6.4-8.2 complet SerPl-m 013 gm/dL ed Cnc 19:42 Albumin 3.5 3.4-5.0 complet 013 gm/dL ed SerPl-m 19:42 Cnc Globuli 4.4 1.3-3.2 complet n 013 gm/dL ed Ser-mCn 19:42 c Albumin 06-20-2 0.8 UNK 1.1-1.8 complet /Glob 013 ed SerPl-m 19:42 Rto Bilirub 06-20-2 0.2 0.2-1.0 complet 013 mg/dL ed SerPl-m 19:42 Cnc AST 06-20- 12 U/L 15-37 complet SerPl-c 013 ed Cnc 19:42 ALT 06-20-2 32 U/L 30-65 complet SerPl-c 013 ed Cnc 19:42 ALP 06-20-2 118 U/L 50-136 complet SerPl-c 013 ed Cnc 19:42 BNP Bld-mCnc (06-20-2012 19:42) BNP 06-20-2 36 0-100 complet Bld-mCn 013 pg/mL ed c 19:42 CBC with AUTO DIFF (06-20-2012 19:42) WBC # 06-20-2 6.1 4.8-10. complet Bld 013 K/MM3 8 ed Auto 19:42 RBC # 06-20-2 3.88 4.2-5.4 complet Bld 013 M/mm3 ed Auto 19:42 Hgb 06-20-2 11.0 12.2-16 complet Bld-mCn 013 g/dL .2 ed c 19:42 Hct Fr 06-20-2 32.8 % 37.0-47 complet Bld 013 .0 ed 19:42 MCV RBC 06-20-2 84.6 fl 82.2-97 complet 013 .8 ed 19:42 MCH RBC 06-20-2 28.4 pg 27-31.2 complet Qn 013 ed Auto 19:42 MEAN 06-20-2 33.6 31.8-35 complet CORPUSC 013 g/dl .4 ed ULAR 19:42 HGB CONC RDW RBC 06-20-2 13.9 % 11.5-17 complet Auto 013 .5 ed 19:42 Platele 06-20-2 303 142-424 complet t Bld 013 K/mm3 ed Ql 19:42 Manual MEAN 06-20-2 7.3 fl 7.4-10. complet PLATELE 013 4 ed T 19:42 VOLUME Granulo 06-20- 51.5 % 37.0-80 complet cytes 013 .0 ed Fr Bld 19:42 Auto LYMPH % 04-13-2 38.0 % 10-50.0 complet 013 ed 19:42 Monocyt 04-13-2 6.8 % 1.7-9.3 complet es Fr 013 ed Bld 19:42 Auto Eosinop 04-13-2 3.3 % 0.1-12. complet hil Fr 013 0 ed Bld 19:42 Auto Basophi 04-13-2 0.5 % 0.1-2.0 complet ls Fr 013 ed Bld 19:42 Auto Granulo -13-2 3.2 1.8-7.8 complet cytes # 013 K/mm3 ed Bld 19:42 Auto Lymphoc -13-2 2.3 0.7-4.5 complet ytes Fr 013 K/mm3 ed Bld 19:42 Auto Monocyt -13-2 0.4 0.1-1.0 complet es # 013 K/mm3 ed Bld 19:42 Auto Eosinop -13-2 0.2 0.0-0.4 complet hil # 013 K/mm3 ed Bld 19:42 Auto Basophi -13-2 0.0 0-0.2 complet ls # 013 K/MM3 ed Bld 19:42 Auto Encounters Encounter Start End Date Code Location Performer Type Date Emergency RAFAEL FERGUSON MD (ER) 3 14:02 3 16:29 [facility] Inpatient DAMON Anderson MD ([place]) 3 20:00 3 18:28 [facility]
--- OUTSIDE RECORDS SUMMARY | 2017-01-25 05:09 | External Medical Summary Rpt | CCD ---
Demographics Preferred Language Slovenian Marital Status Unknown Taoism Affiliation Unknown Race Unknown Ethnic Group Unknown Author Author , HAI VALLES Address Unknown Phone [email or web address] Immunization Name Date Rout CVX Reac Dose Comm Prov Is Faci e tion ent ider Refu lity Give sed n Hep 08-1 43 999 Hist H109 No H109 B, 6-20 oric adul 07 al t Info rmat ion - Sour ce Unsp ecif ied
--- OUTSIDE RECORDS SUMMARY | 2017-01-25 05:09 | External Medical Summary Rpt | CCD ---
Author Author , HAI VALLES Address Unknown Phone [email or web address] Providers Care Online Marketing Specialist Name Role Phone Jabari Anderson MD, Unavailable Unavailable Jabari EFRGUSON MD, Unavailable Unavailable ADOLFO FERGUSON MD Purpose Continuity of Care Document - 06-20-2012 through 2016 Problems Code Diagnosis DOS Provider Status 411.1 411.1 06-26-2012 Leopold INTERMED [facility] CORONARY [facility] SYND 786.50 786.50 06-26-2012 Leopold CHEST PAIN [facility] 041.49 041.49 06-23-2012 Leopold OTHER AND [facility] UNSPECIFIED Hospital ESCHERICHIA COLI [E. COLI] 250.40 250.40 DIAB 06-23-2012 Spencer W RENAL [facility] MANIFEST, Hospital TYPE II OR UNSPEC TYPE, NOT UNCNTRLD 250.70 250.70 DIAB 06-23-2012 Spencer W PERIPH [facility] CIRC DIS, Hospital TYPE II OR UNSPEC TYPE, NOT UNCNTRLD 305.1 305.1 06-23-2012 Leopold TOBACCO USE [facility] DISORDER Hospital 403.90 403.90 06-23-2012 [facility] HYPTNSV [facility] KID DIS, Hospital UNSPEC, W CHR KD STAGE I-IV OR UNSP 412 412 OLD 06-23-2012 Leopold MYOCARDIAL [facility] INFARCT Hospital 414.01 414.01 06-23-2012 Leopold CORONARY [facility] ATHEROSCLER Hospital [place] CORONARY VESSEL 414.2 414.2 06-23-2012 Leopold CHRONIC [facility] TOTAL Hospital OCCLUSION OF CORONARY ARTERY 443.81 443.81 06-23-2012 Leopold ANGIOPATHY [facility] IN OTHER Hospital DIS 465.9 465.9 ACUTE 06-23-2012 Leopold URI NOS [facility] 490 490 06-23-2012 Leopold BRONCHITIS [facility] NOS Hospital 581.81 581.81 06-23-2012 Leopold NEPHROTIC [facility] SYN IN OTH Hospital DIS 585.3 585.3 06-23-2012 Leopold CHRONIC [facility] KIDNEY Hospital DISEASE, STAGE III (MODERATE) 599.0 599.0 URIN 06-23-2012 Leopold TRACT [facility] INFECTION Hospital NOS V45.09 V45.09 06-23-2012 Leopold OTHER [facility] SPECIFIED Hospital CARDIAC DEVICE IN SITU V45.82 V45.82 06-23-2012 [facility] CORON ANGIOPLASTY STATUS V58.67 V58.67 06-23-2012 [facility] (CURRENT) [facility] USE OF INSULIN E11.9 TYPE 2 [...] TF 07 -1 OR 90 4- Lo MN 17 20 ng N 22 13 er [...] < 200 complet cholest 017 mg/dL ed ezequiel 12:06 measure ment Comprehensive metabolic panel (01-24-2017 12:06) Comment: DEW...PT IS LEAVING FOR [place] IN THE A.M. AND DOES NOT WANT [...] SQUARE METERS Comment: If this patient is -Irish, then multiply the Comment: result by 1.210. [...] blood 12:06 platele t mean volume sondra Augusta % = 5.6 % 1.7-9.3 complet 017 [...] K/MM3 ed Bld 14:05 Auto Glucose BldC [facility]com[facility] (06-23-2012 16:58) Glucose 369 70-110 High complet BldC 013 mg/dl alert ed Glucomt 16:58 r-nc Glucose BldC [facility]com[facility] (06-23-2012 12:02) Glucose 172 70-110 complet BldC [...] mg/dl ed Glucomt 16:59 r-nc Glucose dC [facility] (06-22-2012 11:58) Glucose 06-22-2 154 70-110 complet BldC 013 mg/dl ed Glucomt 11:58 r-[facility] Glucose dC [facility] (06-22-2012 06:51) Glucose 15-2 115 70-110 complet BldC 013 mg/dl ed Glucomt 06:51 r-[facility] Glucose dC [facility] (06-21-2012 20:27) Glucose 06-21-2 220 70-110 complet BldC 013 mg/dl ed Glucomt 20:27 r-[facility] URINALYSIS/COMPLETE (06-21-2012 18:45) URINE -14-2 YELLOW YELLOW [...] BACTERI 013 ed A 18:45 Glucose dC [facility] (06-21-2012 16:40) Glucose 248 70-110 complet BldC 013 mg/dl ed Glucomt 16:40 r-[facility] Glucose dC [facility]comtr-[facility] (06-21-2012 08:33) Glucose 250 70-110 complet BldC 013 mg/dl ed Glucomt 08:33 r-[facility] BASIC METABOLIC PANEL (06-21-2012 03:05) Glucose 200 [...] FERGUSON MD (ER) 3 14:02 3 16:29 [facility] Inpatient DAMON Anderson MD (IN) 3 20:00 3 18:28 [facility]
--- OUTSIDE RECORDS SUMMARY | 2017-01-25 05:09 | External Medical Summary Rpt | CCD ---
Author Author [employer] Address Unknown Phone Unavailable Purpose Continuity of Care Document - through 2016
--- OUTSIDE RECORDS SUMMARY | 2017-01-25 05:10 | External Medical Summary Rpt ---
Author Author HAI Bah, [employer] Address Unknown Phone Unavailable Results Hemoglobin A1c in Blood Observa Value Referen Units Interpr Notes Date tion ce etation Range DEW...PT IS LEAVING FOR [place] IN THE A.M. AND DOES NOT WANT TO COME BACK. Hemoglo 9.7 0.0 - % High < 6% Jan 24 bin A1c 7.0 NON-NEPTALI 2016 in [facility] 12:06 Blood LEVEL< PM 7% CONTROL LED DIABETI C LEVEL> 8% POORLY CONTROL LED DIABETI C LEVEL Amylase [Enzymatic activity/volume] in Serum or Plasma Observa Value Referen Units Interpr Notes Date tion ce etation Range DEW...PT IS LEAVING FOR [place] IN THE A.M. AND DOES NOT WANT TO COME BACK. Amylase 25 - 115 U/L Normal No Jan 24 [Enzymati informati 2017 c on in 12:06 PM activity/ source volume] data in Serum or Plasma Comprehensive metabolic 2000 panel in Serum or Plasma Observa Value Referen Units Interpr Notes Date tion ce etation Range DEW...PT IS LEAVING FOR [place] IN THE A.M. AND DOES NOT WANT TO COME BACK. Albumin/G 1.1 - 1.8 No Low No Jan 24 lobulin informati informati 2016 [Mass on in on in 12:06 PM ratio] in source source Serum or data data Plasma Albumin 3.4 - 5.0 gm/dL No No Jan 24 [Mass/vol informati informati 2017 ume] in on in on in 12:06 PM Serum or source source Plasma data data Alkaline 46 - 116 U/L Normal No Jan 24 phosphata informati 2017 se on in 12:06 PM [Enzymati source c data activity/ volume] in Serum or Plasma Bilirubin 0.2 - 1.0 mg/dL Normal No Jan 24 .total informati 2017 [Mass/vol on in 12:06 PM ume] in source Serum or data Plasma Urea 7 - 18 mg/dL High No Jan 24 nitrogen informati 2017 [Mass/vol on in 12:06 PM ume] in source Serum or data Plasma Calcium 8.5 - mg/dL Normal No Jan 24 [Mass/vol 10.1 informati 2016 ume] in on in 12:06 PM Serum or source Plasma data Chloride 98 - 107 mmoL/L Normal No Jan 24 [Moles/vo informati 2016 lume] in on in 12:06 PM Serum or source Plasma data Carbon 21.0 - mmoL/L Low No Jan 24 dioxide, 32.0 informati 2017 total on in 12:06 PM [Moles/vo source lume] in data Serum or Plasma Creatinin 0.55 - mg/dL High No Jan 24 e 1.02 informati 2016 [Mass/vol on in 12:06 PM ume] in source Serum or data Plasma Estimated 59- ML/MIN Low REFERENCE Jan 24 RANGE: 2017 glomerula >60 12:06 PM r ML/MIN/1. filtratio 73 SQUARE n rate METERSIf (GF this patient is -A merican, then multiply theresult by 1.210. Globulin 1.3 - 3.2 gm/dL High No Jan 24 [Mass/vol informati 2016 ume] in on in 12:06 PM Serum source data Glucose 74 - 106 mg/dL High No Jan 24 [Mass/vol informati 2016 ume] in on in 12:06 PM Serum or source Plasma data Potassium 3.5 - 5.1 mmoL/L High Jan 24 alert 2016 [Moles/vo CRITICAL 12:06 PM lume] in RESULTS Serum or Plasma RESU LTS CALLED TO: EARL FIGUEROA 01/24/17 1507 Alla Rousseau Sodium 136 - 145 mmoL/L Normal No Jan 24 [Moles/vo informati 2017 lume] in on in 12:06 PM Serum or source Plasma data Aspartate 15 - 37 U/L Low No Jan 242016 aminotran on in 12:06 PM sferase source [Enzymati data c activity/ volume] in Serum or Plasma Alanine 12 - 78 U/L Normal No Jan 24 aminotran 2016 sferase on in 12:06 PM [Enzymati source c data activity/ volume] in Serum or Plasma Protein 6.4 - 8.2 gm/dL No No Jan 24 [Mass/vol informati informati 2016 ume] in on in on in 12:06 PM Serum or source source Plasma data data Lipid 1996 panel in Serum or Plasma Observa Value Referen Units Interpr Notes Date tion ce etation Range DEW...PT IS LEAVING FOR [place] IN THE A.M. AND DOES NOT WANT TO COME BACK. Cholester < 200 mg/dL High No Jan 24 ol 2016 [Moles/vo on in 12:06 PM lume] in source Unspecifi data ed specimen Cholester 40 - 60 MG/DL Low No Jan 24 ol in HDL 2016 on in 12:06 PM [Mass/vol source ume] in data Serum or Plasma Cholest TNP 0 - 130 mg/dL No No Jan 24 ezequiel in informa 2016 LDL tion in tion in 12:06 [Mass/v source source PM olume] data data in Serum or Plasma by calcula tion Triglycer 30 - 200 mg/dL High IF Jan 24 genet TRIGLYCER 2016 [Moles/vo GENET VALUE 12:06 PM lume] in EXCEEDS Serum or 400 Plasma MG/DL,THE VLDL/LDL VALUES HAVE NO CLINICAL SIGNIFICA NCE.THE CALCULATI ONS ARE ACCURATE FOR SPECIMENS INWHICH THE TRIGLYCER GENET CONCENTRA TION IS NO MORETHAN 400 MG/DL AND WHICH ARE NOT FROM PERSONS WHOHAVE TYPE III HYPERLIPO PROTEINEM IA. Cholest TNP 0 - 40 No No No Jan 24 ezequiel in inform inform inform2016 VLDL tion in tion in tion in 12:06 [Mass/v source source source PM olume] data data data in Serum or Plasma CBC W Auto Differential panel in Blood Observa Value Referen Units Interpr Notes Date tion ce etation Range DEW...PT IS LEAVING FOR [place] IN THE A.M. AND DOES NOT WANT TO COME BACK. Basophils 0 - 0.2 K/MM3 Normal No Jan 242016 [#/volume on in 12:06 PM ] in source Blood by data Automated count Basophils 0.1 - 2.0 % Normal No Jan 24 /100 2016 leukocyte on in 12:06 PM s in source Blood by data Automated count Eosinophi 0.0 - 0.4 K/mm3 Normal No Jan 24 ls 2016 [#/volume on in 12:06 PM ] in source Blood by data Automated count Eosinophi 0.1 - % Normal No Jan 24 ls/100 12.0 inform2016 leukocyte on in 12:06 PM s in source Blood by data Automated count Granulocy 1.8 - 7.8 K/mm3 Normal No Jan 24 sim inform2016 [#/volume on in 12:06 PM ] in source Blood by data Automated count Granulocy 37.0 - % Normal No Jan 24 sim/100 80.0 inform2016 leukocyte on in 12:06 PM s in source Blood by data Automated count Hematocri 37.0 - % Normal No Jan 24 t [Volume 47.0 informati 2016 on in 12:06 PM Fraction] source of Blood data Hemoglobi 12.2 - g/dL No No Jan 24 n 16.2 informati informati 2016 [Mass/vol on in on in 12:06 PM ume] in source source Blood data data Lymphocyt 0.7 - 4.5 K/mm3 Normal No Jan 24 es 2016 [#/volume on in 12:06 PM ] in source Unspecifi data ed specimen by Automated count Lymphocyt 10 - 50.0 % Normal No Jan 24 es 2016 [#/volume on in 12:06 PM ] in source Unspecifi data ed specimen by Automated count Erythrocy 27 - 31.2 pg Normal No Jan 24 te mean 2016 corpuscul on in 12:06 PM ar source hemoglobi data n [Entitic mass] Erythrocy 31.8 - g/dl Normal No Jan 24 te mean 35.4 2016 corpuscul on in 12:06 PM ar source hemoglobi data n concentra tion [Mass/vol ume] by Automated count Erythrocy 82.2 - fl Normal No Jan 24 te mean 97.8 inform2016 corpuscul on in 12:06 PM ar volume source [Entitic data volume] by Automated count Monocytes 0.1 - 1.0 K/mm3 Normal No Jan 242016 [#/volume on in 12:06 PM ] in source Blood by data Automated count Monocytes 1.7 - 9.3 % Normal No Jan 24 /100 inform2016 leukocyte on in 12:06 PM s in source Blood by data Automated count Platelet 7.4 - fl Normal No Jan 24 mean 10.4 informati 2017 volume on in 12:06 PM [Entitic source volume] data in Blood by Automated count Platelets 142 - 424 K/mm3 Normal No Jan 24 informati 2016 [#/volume on in 12:06 PM ] in source Blood data Erythrocy 4.2 - 5.4 M/mm3 Normal No Jan 24 sim informati 2016 [#/volume on in 12:06 PM ] in source Amniotic data fluid Erythrocy 11.5 - % Normal No Jan 24 te 17.5 informati 2016 distribut on in 12:06 PM ion width source [Entitic data volume] by Automated count Leukocyte 4.8 - K/MM3 Normal No Jan 24 s 10.8 informati 2016 [#/volume on in 12:06 PM ] in source Blood data Hemoglobin A1c in Blood Observa Value Referen Units Interpr Notes Date tion ce etation Range Hemoglo 9.3 0.0 - % High < 6% August 06 bin A1c 7.0 NON-NEPTALI 2017 in [facility] 11:56 Blood LEVEL< AM 7% CONTROL LED DIABETI C LEVEL> 8% POORLY CONTROL LED DIABETI C LEVEL Comprehensive metabolic 2000 panel in Serum or Plasma Observa Value Referen Units Interpr Notes Date tion ce etation Range Albumin/G 1.1 - 1.8 No Low No August 06 lobulin informati informati 2016 [Mass on in on in 11:56 AM ratio] in source source Serum or data data Plasma Albumin 3.4 - 5.0 gm/dL Normal No August 06 [Mass/vol informati 2016 ume] in on in 11:56 AM Serum or source Plasma data Alkaline 46 - 116 U/L Normal No August 06 phosphata informati 2016 se on in 11:56 AM [Enzymati source c data activity/ volume] in Serum or Plasma Bilirubin 0.2 - 1.0 mg/dL Normal No August 06 .total informati 2016 [Mass/vol on in 11:56 AM ume] in source Serum or data Plasma Urea 7 - 18 mg/dL High No August 06 nitrogen informati 2016 [Mass/vol on in 11:56 AM ume] in source Serum or data Plasma Calcium 8.5 - mg/dL Normal No August 06 [Mass/vol 10.1 informati 2016 ume] in on in 11:56 AM Serum or source Plasma data Chloride 98 - 107 mmoL/L Normal No August 06 [Moles/vo informati 2016 lume] in on in 11:56 AM Serum or source Plasma data Carbon 21.0 - mmoL/L Low No August 06 dioxide, 32.0 inform2016 total on in 11:56 AM [Moles/vo source lume] in data Serum or Plasma Creatinin 0.55 - mg/dL High No August 06 e 1.02 inform2016 [Mass/vol on in 11:56 AM ume] in source Serum or data Plasma Estimated 59- ML/MIN Low REFERENCE August 06 RANGE: 2016 glomerula >60 11:56 AM r ML/MIN/1. filtratio 73 SQUARE n rate METERSIf (GF this patient is -A merican, then multiply theresult by 1.210. Globulin 1.3 - 3.2 gm/dL High No August 06 [Mass/vol informati 2016 ume] in on in 11:56 AM Serum source data Glucose 74 - 106 mg/dL High No August 06 [Mass/vol informati 2016 ume] in on in 11:56 AM Serum or source Plasma data Potassium 3.5 - 5.1 mmoL/L High No August 06 inform2016 [Moles/vo on in 11:56 AM lume] in source Serum or data Plasma Sodium 136 - 145 mmoL/L Low No August 06 [Moles/vo informati 2016 lume] in on in 11:56 AM Serum or source Plasma data Aspartate 15 - 37 U/L Low No August 062016 aminotran on in 11:56 AM sferase source [Enzymati data c activity/ volume] in Serum or Plasma Alanine 12 - 78 U/L Normal No August 06 aminotran 2016 sferase on in 11:56 AM [Enzymati source c data activity/ volume] in Serum or Plasma Protein 6.4 - 8.2 gm/dL Normal No August 06 [Mass/vol informati 2016 ume] in on in 11:56 AM Serum or source Plasma data Lipid 1996 panel in Serum or Plasma Observa Value Referen Units Interpr Notes Date tion ce etation Range Cholester < 200 mg/dL No No August 06 ol informati informati 2016 [Moles/vo on in on in 11:56 AM lume] in source source Unspecifi data data ed specimen Cholester 40 - 60 MG/DL Low No August 06 ol in HDL informati 2016 on in 11:56 AM [Mass/vol source ume] in data Serum or Plasma Cholester 0 - 130 mg/dL No TRIG >400 August 06 ol in LDL informati 2017 on in 11:56 AM [Mass/vol source ume] in data Serum or Plasma by calculati on Triglycer 30 - 200 mg/dL High IF August 06 genet alert TRIGLYCER 2017 [Moles/vo GENET VALUE 11:56 AM lume] in EXCEEDS Serum or 400 Plasma MG/DL,THE VLDL/LDL VALUES HAVE NO CLINICAL SIGNIFICA NCE.THE CALCULATI ONS ARE ACCURATE FOR SPECIMENS INWHICH THE TRIGLYCER GENET CONCENTRA TION IS NO MORETHAN 400 MG/DL AND WHICH ARE NOT FROM PERSONS WHOHAVE TYPE III HYPERLIPO PROTEINEM IA. Cholester 0 - 40 No No TRIG >400 August 06 ol in informati informati 2016 VLDL on in on in 11:56 AM [Mass/vol source source ume] in data data Serum or Plasma Urinalysis dipstick W Reflex Microscopic panel in Urine Observa Value Referen Units Interpr Notes Date tion ce etation Range Appeara CLEAR CLEAR No No No August 06 nce of informa informa informa 2016 Urine tion in tion in tion in 11:56 source source source AM data data data Bacteri 1+ O No No No August 06 a informa informa informa 2016 [Presen tion in tion in tion in 11:56 ce] in source source source AM Urine data data data sedimen t by Light microsc opy Bilirub NEGATIV NEG No No No August 06 in E informa informa informa 2016 [Presen tion in tion in tion in 11:56 ce] in source source source AM Urine data data data by Test strip Erythro TRACE-I NEG No No No August 06 cytes NTACT informa informa informa 2016 [Presen tion in tion in tion in 11:56 ce] in source source source AM Urine data data data Color YELLOW YELLOW No No No August 06 of informa informa informa 2016 Urine tion in tion in tion in 11:56 source source source AM data data data Glucose NEG No No No August 06 [Mass/vol informati informati informati 2016 ume] in on in on in on in 11:56 AM Urine by source source source Test data data data strip Ketones NEGATIV NEG mg/dL No No August 06 E informa informa 2016 [Presen tion in tion in 11:56 ce] in source source AM Urine data data by Automat ed test strip Mucus NEGATIV NEG No No No August 06 [Presen E informa informa informa 2016 ce] in tion in tion in tion in 11:56 Urine source source source AM sedimen data data data t by Light microsc opy Nitrite NEGATIV NEG No No No August 06 E informa informa informa 2016 [Presen tion in tion in tion in 11:56 ce] in source source source AM Urine data data data by Test strip pH of 5.0 - 8.5 No Normal No August 06 Urine informati informati 2017 on in on in 11:56 AM source source data data Protein NEG mg/dL High No August 06 [Mass/vol informati 2017 ume] in on in 11:56 AM Urine by source Automated data test strip Erythro 5-10 0 rbc/hpf No No August 06 cytes informa informa 2016 [Presen tion in tion in 11:56 ce] in source source AM Urine data data sedimen t by Light microsc opy Specific 1.005 - No Normal No August 06 gravity 1.030 informati informati 2016 of Urine on in on in 11:56 AM source source data data Epithel 5-10 0 - 5 #/hpf No No August 06 ial informa informa 2017 cells.s tion in tion in 11:56 quamous source source AM data data [Presen ce] in Urine sedimen t by Microsc opy high power field Urobili 0.2 NEG E.U./dL No No August 06 nogen informa informa 2016 [Presen tion in tion in 11:56 ce] in source source AM Urine data data by Test strip Leukocy [5 O wbc/hpf No No August 06 sim wbc/hpf informa informa 2016 [#/volu ; 10 tion in tion in 11:56 me] in wbc/hpf source source AM Urine ] data data Urinalysis dipstick W Reflex Microscopic panel in Urine Observa Value Referen Units Interpr Notes Date tion ce etation Range Appeara CLEAR CLEAR No No No August 06 nce of informa informa informa 2017 Urine tion in tion in tion in 11:56 source source source AM data data data Bilirub NEGATIV NEG No No No August 06 in E informa informa informa 2016 [Presen tion in tion in ti in 11:56 ce] in source source source AM Urine data data data by Test strip Erythro TRACE-I NEG No No No August 06 cytes NTACT informa informa informa 2016 [Presen tion in tion in tion in 11:56 ce] in source source source AM Urine data data data Color YELLOW YELLOW No No No August 06 of informa informa informa 2017 Urine tion in tion in tion in 11:56 source source source AM data data data Glucose NEG No No No August 06 [Mass/vol informati informati informati 2016 ume] in on in on in on in 11:56 AM Urine by source source source Test data data data strip Ketones NEGATIV NEG mg/dL No No August 06 E informa informa 2016 [Presen tion in ti in 11:56 ce] in source source AM Urine data data by Automat ed test strip Mucus NEGATIV NEG No No No August 06 [Presen E informa informa informa 2016 ce] in tion in tion in tion in 11:56 Urine source source source AM sedimen data data data t by Light microsc opy Nitrite NEGATIV NEG No No No August 06 E informa informa informa 2016 [Presen tion in tion in ti in 11:56 ce] in source source source AM Urine data data data by Test strip pH of 5.0 - 8.5 No Normal No August 06 Urine informati informati 2016 on in on in 11:56 AM source source data data Protein NEG mg/dL High No August 06 [Mass/vol informati 2016 ume] in on in 11:56 AM Urine by source Automated data test strip Specific 1.005 - No Normal No August 06 gravity 1.030 informati informati 2016 of Urine on in on in 11:56 AM source source data data Urobili 0.2 NEG E.U./dL No No August 06 nogen informa informa 2016 [Presen tion in tion in 11:56 ce] in source source AM Urine data data by Test strip
--- OUTSIDE RECORDS SUMMARY | 2017-01-25 05:10 | External Medical Summary Rpt ---
Author Author HAI Bah, [employer] Address Unknown Phone Unavailable Results Hemoglobin A1c in Blood Observa Value Referen Units Interpr Notes Date tion ce etation Range DEW...PT IS LEAVING FOR [place] IN THE A.M. AND DOES NOT WANT TO COME BACK. Hemoglo 9.7 0.0 - % High < 6% Jan 24 bin A1c 7.0 NON-NEPTALI 2016 in [facility] 12:06 Blood LEVEL< PM 7% CONTROL LED [...]
[2017-01-25 05:20] LABS: HEMOGLOBIN 11.9 g/dL (12.2-16.2); LYMPH # 2.6 K/mm3 (0.7-4.5); LYMPH % 42.7 % (10-50.0)
[2017-01-25] MEDS ORDERED: ASPIRIN 325MG325 MG PO (05:21)
[2017-01-25] MEDS ORDERED: ESCITALOPRAM 2020 MG PO (05:22)
[2017-01-25] MEDS ORDERED: LINZESS145 MCG PO (05:25)
[2017-01-25] MEDS ORDERED: CRESTOR20 MG PO (05:27)
[2017-01-25] MEDS ORDERED: GABAPENTIN300 MG PO (05:28)
[2017-01-25] MEDS ORDERED: GLIMEPIRIDE 2MG2 MG PO (05:28)
[2017-01-25] MEDS ORDERED: LOSARTAN POTAS100 MG PO (05:29)
[2017-01-25] MEDS ORDERED: Zofran4 MG PO (05:31)
[2017-01-25 05:38] LABS: BUN 67 mg/dL (7-18)
[2017-01-25 05:53] LABS: GFR (ESTIMATED) 16 ML/MIN (59-)
[2017-01-25 07:03] VITALS: BP 150/90
--- NOTE | 2017-01-25 13:12 | RADIOLOGY REPORT PS360 ---
CT ABD PELVIS W/O CONTRAST HISTORY: ABD PAIN abdominal pain with umbilical hernia. Patient Age: 46 years: Female Ordering Physician: Jon Monet MD TECHNIQUE: Helical CT scanning through abdomen and pelvis with no oral nor IV contrast. Sagittal coronal reconstruction CT workstation COMPARISON : Previous CT abdomen and pelvis from 03/18/2014 FINDINGS . Lung bases clear no active disease. Heart normal size. Abdomen pelvis. Lack of oral and IV contrast decreases sensitivity: Liver. Upper normal in size with generous right lobe measuring 21 cm in length. . Spleen unremarkable. Pancreas satisfactory noncontrast study. Perhaps slight generous Generous head of pancreas/uncinate but unchanged since prior 2015 study... Gallbladder surgically removed. The mildly enlarged left adrenal appears stable. There appears to be a at least 12 mm low-density nodule at the medial left adrenal. Compatible with benign nonfunctioning left adrenal adenoma-unchanged since previous study. Kidneys mild stranding about both kidneys in part reflects chronic changes as seen on 2015 CT.... But appears slightly more pronounced today particularly at about the more inferior left kidney..Both kidneys appear incrementally smaller today than on 2015 CT. ( left kidney `~ 1 cm smaller now measuring 12.4 seem in length). In reviewing current lab I would note the patient's creatinine today has increased to 3.1 this these observations may reflect progressive CRF chronic renal changes due to. No hydronephrosis. No obstruction currently. Left kidney: The estimated perhaps very slight more pronounced stranding about the lower pole left kidney. Warrants correlation urinalysis favor reflecting chronic renal changes but need to exclude superimposed UTI or pyelonephritis. No obstructive uropathy evident. There are a few tiny less ~ 2 mm mm nonobstructive calculi at the mid and upper pole left kidney, best seen on image 48 nonobstructive calculi at the left kidney. Right kidney no calculi. No obstruction. No retroperitoneal adenopathy nor mesenteric adenopathy of significance. . Diffuse atherosclerotic calcification of modest caliber aorta. No aneurysm GI TRACT. No bowel dilatation or obstruction. Moderate stool throughout colon No significant GI tract findings. Previous appendectomy. . Pelvis. Previous hysterectomy. No adnexal masses. Tiny ventral hernia sagittal image 51 located less than 5 cm above the umbilicus. May be a midline incisional hernia There is some bulging of fat through this tiny 4 mm abdominal wall defect no bowel loops. . Only a very tiny fat-containing umbilical hernia which does not appear to be of significance. Osseous. No significant findings. Facet hypertrophy most evident at L5/S1 L4/5 IMPRESSION: ------ No acute findings abdomen pelvis ---- 1. No urinary tract obstruction. Tiny Small nonobstructive calculi left kidney . 2. Stranding about both kidneys, I favor this mainly reflects mainly chronic changes as discussed in text. But with Stranding about the lower left kidney very slight more evident today.. Warrants correlation urinalysis to exclude superimposed UTI or infection. However reviewing available history this feature may Merely be due to progressive chronic renal failure changes ( noted patient's creatinine now 3.1). Kidney slightly smaller in size today vs 2014 3. Tiny 4 mm midline ventral hernia/possible tiny incisional hernia defect, located 5 cm above the umbilicus. There is Bulging of fat through this tiny hernia defect but no inflammation... No bowel loops are involved. Minor observation. Doubt source of pain but warrants correlation.
== END 2017-01-25 07:04 | disposition home or self-care (01) ==
LOC: ER 04:45
PROVIDERS: Emergency Medicine
DX: K29.00 Acute gastritis without bleeding (principal); N28.9 Disorder of kidney and ureter, unspecified; F17.210 Nicotine dependence, cigarettes, uncomplicated; E11.65 Type 2 diabetes mellitus with hyperglycemia; Z79.4 Long term (current) use of insulin; Z79.84 Long term (current) use of oral hypoglycemic drugs; I10 Essential (primary) hypertension; Z88.1 Allergy status to other antibiotic agents